=== PATIENT | male | born 1955 | race Caucasian/White ===

== ENCOUNTER 2016-12-15 11:10 | Emergency (ER) | payer OTHER, BC ==
--- NOTE | 2016-12-25 01:04 | ER ---
ADMIT: 12/15/2016 RM/LOC: ER [facility] MR#: [id number] [address] [id number] JAYLA GOMEZ [address] [place] [address] Emergency Room Report SEX: M AGE: 61 : 1955 DATE: 12/15/2016 ADDENDUM: CHIEF COMPLAINT: Laceration to head. HISTORY OF PRESENT ILLNESS: This is a 61-year-old male, who works for [employer]. He was going to fix an air conditioner. He stood up and hit the angle of a piece of metal which caused a laceration to his head. There was no loss of consciousness. No vomiting. No mental status changes, just pain where the laceration is. I did place 4 brittany into the head after cleaning the area. Having him follow up with Dr. Diamond in a week for staple removal, he already has an appointment next Monday. Told him he could take Tylenol or Aleve for pain, ice, and again follow up with Dr. Diamond. CLINICAL IMPRESSION: Laceration to head. I did advice him to return the ER if any kind mental status changes, vomiting, or intolerable headache. ROMAN Mtz / Adam Figueroa MD / randy JOB #: [id number] CC: Adam Figueroa MD, Attending Physician
== END 2016-12-15 12:00 | disposition home or self-care (01) ==
LOC: ER 11:10
PROC: 0HQ0XZZ Repair Scalp Skin, External Approach (ICD-10-PCS; principal; 2016-12-15)
DX: S01.01XA Laceration without foreign body of scalp, initial encounter (principal); Z23 Encounter for immunization; I10 Essential (primary) hypertension; E78.00 Pure hypercholesterolemia, unspecified; W22.8XXA Striking against or struck by other objects, initial encounter; Y92.69 Other specified industrial and construction area as the place of occurrence of the external cause; Y99.0 Civilian activity done for income or pay